=== PATIENT | male | born 1945 | race Caucasian/White ===

== ENCOUNTER → 2021-03-28 | Emergency (ER) | payer OTHER ==
[~2021-03-28] VITALS: Ht 177.8 cm; Wt 95.3 kg
[~2021-03-28] MED LIST: BACTRIM DS TAB1 EACH PO; FLOMAX; FUSION PLUS CA1 EACH PO; JANUMET 50-1,01 EACH; PROCAR PO; ZESTRIL10 M1; ZOLOFT50 MG PO
== END | disposition home or self-care (01) ==
LOC: ER 22:32
DX: R33.8 Other retention of urine (principal)

== ENCOUNTER 2021-04-02 18:18 | Emergency (ER) | payer OTHER ==
[~2021-04-02] VITALS: Ht 180.3 cm; Wt 103.4 kg
[~2021-04-02 18:18] MED LIST changes: -BACTRIM DS TAB1 EACH PO; -FLOMAX; -FUSION PLUS CA1 EACH PO; -PROCAR PO; -ZOLOFT50 MG PO
[2021-04-02] MEDS ORDERED: FLOMAX (18:58)
== END 2021-04-02 21:32 | disposition home or self-care (01) ==
LOC: ER 18:18
DX: T83.038A Leakage of other urinary catheter, initial encounter (principal)

== ENCOUNTER → 2021-04-03 | Emergency (ER) | payer OTHER ==
[~2021-04-03] MED LIST changes: +BACTRIM DS TAB1 EACH PO; +FLOMAX; +FUSION PLUS CA1 EACH PO; +PROCAR PO; +ZOLOFT50 MG PO
== END | disposition left against medical advice (07) ==
LOC: ER 00:13
DX: Z53.20 Procedure and treatment not carried out because of patient's decision for unspecified reasons (principal)

== ENCOUNTER 2021-04-10 16:08 | Outpatient (CLI) | payer OTHER ==
[~2021-04-10 16:08] MED LIST changes: -BACTRIM DS TAB1 EACH PO; -FUSION PLUS CA1 EACH PO; -PROCAR PO; -ZOLOFT50 MG PO
== END 2021-04-10 17:00 | disposition home or self-care (01) ==
LOC: EKG 16:08
PROVIDERS: ATTEND Urology
DX: Z01.810 Encounter for preprocedural cardiovascular examination (principal); I10 Essential (primary) hypertension

== ENCOUNTER 2021-04-10 17:40 | Emergency (ER) | payer OTHER ==
[~2021-04-10] VITALS: Ht 175.3 cm; Wt 97.5 kg
== END 2021-04-10 22:20 | disposition home or self-care (01) ==
LOC: ER 17:40
DX: T83.84XA Pain due to genitourinary prosthetic devices, implants and grafts, initial encounter (principal); G89.18 Other acute postprocedural pain; R10.2 Pelvic and perineal pain

== ENCOUNTER → 2021-04-14 | Emergency (ER) | payer OTHER ==
[~2021-04-14] MED LIST changes: +BACTRIM DS TAB1 EACH PO; +FUSION PLUS CA1 EACH PO; +PROCAR PO; +ZOLOFT50 MG PO
== END | disposition home or self-care (01) ==
LOC: ER 23:39
DX: R10.2 Pelvic and perineal pain (principal); T83.84XA Pain due to genitourinary prosthetic devices, implants and grafts, initial encounter; Y73.1 Therapeutic (nonsurgical) and rehabilitative gastroenterology and urology devices associated with adverse incidents

== ENCOUNTER 2021-04-21 08:30 | Inpatient (IN) | payer OTHER ==
[~2021-04-21] VITALS: Ht 180.3 cm; Wt 97.1 kg
[~2021-04-21 08:30] MED LIST changes: -BACTRIM DS TAB1 EACH PO; -FUSION PLUS CA1 EACH PO; -PROCAR PO; -ZOLOFT50 MG PO
[2021-04-21] MEDS ORDERED: PROCAR PO (10:44)
[2021-04-21] MEDS ORDERED: ZOLOFT50 MG PO (10:44)
[2021-04-21] MEDS ORDERED: BACTRIM DS TAB1 EACH PO (10:44)
[2021-04-21] MEDS ORDERED: FUSION PLUS CA1 EACH PO (10:45)
== END 2021-04-26 13:40 | disposition home or self-care (01) | DRG 714 ==
LOC: O/R 04-26 05:30 → SURH 04-26 07:00 → O/R 04-26 13:40
PROVIDERS: ADMIT Urology; ATTEND Urology
PROC: 0VB08ZZ Excision of Prostate, Via Natural or Artificial Opening Endoscopic (ICD-10-PCS; principal; 2021-04-26 07:00)
DX: N40.0 Benign prostatic hyperplasia without lower urinary tract symptoms (principal); R33.8 Other retention of urine

== ENCOUNTER 2021-04-26 20:19 | Emergency (ER) | payer OTHER ==
[~2021-04-26] VITALS: Ht 180.3 cm; Wt 97.5 kg
[~2021-04-26 20:19] MED LIST changes: +BACTRIM DS TAB1 EACH PO; +FUSION PLUS CA1 EACH PO; +PROCAR PO; +ZOLOFT50 MG PO
== END 2021-04-26 22:26 | disposition home or self-care (01) ==
LOC: ER 20:19
DX: G89.18 Other acute postprocedural pain (principal); N48.89 Other specified disorders of penis; N99.89 Other postprocedural complications and disorders of genitourinary system